=== PATIENT | male | born 1985 | race Two or more races ===

== ENCOUNTER 2020-10-09 09:40 | Emergency (ER) | payer OTHER ==
[~2020-10-09] VITALS: Ht 170.2 cm; Wt 81.6 kg
[2020-10-09] MEDS ORDERED: ZYRTEC10 M3 (10:09)
[2020-10-09] MEDS ORDERED: PROZAC40 MG (10:09)
[2020-10-09] MEDS ORDERED: INTESTINEX680 M1 PO (15:59)
[2020-10-09] MEDS ORDERED: MORGIDOX100 MG PO (15:59)
== END 2020-10-09 14:02 | disposition home or self-care (01) ==
LOC: ER 09:40
DX: B34.9 Viral infection, unspecified (principal); A69.20 Lyme disease, unspecified; Z11.52 Encounter for screening for COVID-19